=== PATIENT | female | born 1990 | race African-American/Black ===

== ENCOUNTER 2022-03-25 06:46 | Inpatient (IN) ==
[2022-03-25] MEDS ORDERED: PENICILLIN G POTASSIUM 6 MU in DEXTROSE 5% 250 ML IV STA (07:14)
[2022-03-25] MEDS ORDERED: OXYTOCIN 30 UNITS/500 ML BAG IV PRN ×2 (07:14→07:21)
--- NOTE | 2022-03-25 07:16 | History & Physical Report ---
Date of Service March 25, 2022 Assessment & Plan (1) Carrier of group B Streptococcus: (2) Insulin controlled gestational diabetes mellitus (GDM) during : (3) PROM (premature rupture of membranes): Plan: grossly ruptured and gbs positive. Start pcn prophylaxis. fetus category one. Discussed expectant management vs. pitocin now. Discussed leaning to the latter as she is gbs positive. they are considering. check bs q 1 hr. Anticipat History of Present Illness Chief Complaint: rom Primary Care Provider: Liseth Coates MD Patient is a 32yof with iup at 37 3/7 weeks who presents to labor and delivery noting rom at 5am, gush with constant leaking. no real contractions, some cramping. no vb. +fm. Last us showed ac 97%, efw 92% and Delivery Plans Two GS identified at NOB visit, a viable S=D and a second one with nonviable 6w3d pole - Manage as viable sierra - May impact cfDNA results; test as twin, and pt/FOB aware abnl DNA may be detected from the MAB, amnio may be required to clarify results. S/p flu shot 07/2021, COVID booster 08/20/21 Insufficent DNA x2 on Panorama *Genetic consult (11/03/21 @ [facility] [place]) - [facility] Normal GDM on insulin *Wkly NSTs @32wks and Twice wkly @36wks *Serial growth US @28wks *Deliver by [facility]-Induction 04/06 Covid Test 04/02 OB Labs: Blood Type O Positive 09/03/21 Antibody Screen NEGATIVE 09/03/21 Hemoglobin 11.8 g/dL (12.0-16.0) L 01/23/22 Hematocrit 35.9 % (37-47) L 01/23/22 Mean Corpuscular Volume 83.7 fL (80-100) 09/03/21 Platelet Count 262 K/uL (130-400) 09/03/21 Rubella IgG Antibody Immune (Immune) 09/03/21 Rapid Plasma Reagin Nonreactive (Nonreactive) 09/03/21 Hepatitis B Surface Antigen Neg (Neg) 09/03/21 HIV (1&2) Ab and P24 Ag, 4th Gener Neg (Neg) 09/03/21 Glucose 1 Hour 50 gm Load 141 mg/dl (70-130) H 01/23/22 OB Optional Labs: Chlamydia trachomatis RNA NOT DETECTED (NOT DETECTED) 09/03/21 Neisseria gonorrhoeae RNA NOT DETECTED (NOT DETECTED) 09/03/21 Labs Reviewed: insufficient dna with panorama x 2csmp invitae--low risk smp cf/sma neg--smp declines msafp--smp gbs positive Allergies Allergy/AdvReac Type Severity Reaction Status Date / Time No Known Allergies Allergy Verified 03/20/22 09:25 Home Medications Medication Instructions Recorded Confirmed Type prenat.vits,kayla,wjj-rxix-dcjxd 2 tab PO DAILY tab 05/22/21 03/20/22 History famotidine [Pepcid AC] PO 08/27/21 03/20/22 History acetone (urine) test (Ketone Urine #50 ea 01/30/22 03/20/22 Rx Test) blood sugar diagnostic (OneTouch #150 ea 01/30/22 03/20/22 Rx Verio test strips) blood-glucose meter (OneTouch #1 ea 01/30/22 03/20/22 Rx Verio Reflect Meter) lancets 33 gauge (OneTouch Delica #150 ea 01/30/22 03/20/22 Rx Lancets) insulin NPH isoph U-100 human 100 8 unit SUBCUT .at bedtime #15 ml 02/06/22 03/20/22 Rx unit/mL (3 mL) subcutaneous pen (Novolin N Flexpen) insulin aspart U-100 100 unit/mL See Rx Instructions SUBCUT TID #15 02/11/22 03/20/22 Rx (3 mL) subcutaneous pen (Novolog ml Flexpen U-100 Insulin aspart) pen needle, diabetic 32 gauge x #100 ea 02/12/22 03/20/22 Rx 5/32" (BD Ultra-Fine Areli Pen Needle) Patient History Medical History GERD (gastroesophageal reflux disease) Varicella vaccination Surgical History [place] teeth removed Family History Grandmother (Maternal) No problems noted. Grandmother (Paternal) Breast cancer Grandfather (Paternal) Colorectal cancer Mother Hypertension Father Asthma Brother Asthma Crohn's disease Brother No problems noted. Denies family history of Ovarian cancer Prostate cancer Myocardial infarction Social History Smoking Status: Never smoker Second Hand Exposure: No; Hx Alcohol Use: Yes Alcohol type: beer Alcohol Intake Frequency: Monthly or Les s Hx Substance Use: No Preferred Language: Malian Communication Ability: Effective Visual Impairment: No Limitations Hearing Ability: Normal Beliefs That Will Affect Care: None marital status: marital status details: Porfirio العلي" Dowling (30) [phone] Current Living Situation: Spouse Current Living Situation Comment: Lives with , dogs and cat. FOB changes litter. 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 Results & Data ([facility]) Vital Signs (Past 12 Hours) Vital Signs Pulse BP 03/25/22 07:02 106 H 131/85 Coding Level of Care Code None Diagnoses Carrier of group B Streptococcus Z22.330 Insulin controlled gestational diabetes mellitus (GDM) during O24.414 PROM (premature rupture of membranes) O42.90
[2022-03-25 07:39] LABS: Mean Corpuscular Hgb Conc 31.9 g/dL (32-36)
[2022-03-25 07:47] LABS: Hematocrit (blood only) 33.5 % (37-47); Hemoglobin 10.7 g/dL (12.0-16.0); Mean Corpuscular Hemoglobin 24.8 pg (25-34); Mean Corpuscular Volume 77.7 fL (80-100); Red Blood Count 4.31 M/uL (4.2-5.4); White Blood Count 6.34 K/uL (4.8-10.8)
[2022-03-25 08:04] LABS: Platelet Count 135 K/uL (130-400); Platelet Estimate Decreased (Normal)
[2022-03-25] MEDS: LACTATED RINGER'S 1,000 ML IV PRN ×2 (08:04→15:58)
[2022-03-25] MEDS: PENICILLIN G POTASSIUM 3 MU in DEXTROSE 5% 100 ML IV PRN ×3 (12:05→20:59)
--- NOTE | 2022-03-25 13:30 | Labor Progress Brief Note ---
Date of Service March 25, 2022 Subjective Tolerating ctx, will want epidural soon Assessment & Plan (1) PROM (premature rupture of membranes): Plan: GBS pos - abx PROM - pit, may need to increase max as no change really yet BP - higher readings noted, may be due to pt becoming uncomfortable now GDM - in target range without insulin thus far, Q1h checks Admission and Anticipated Discharge Date Admission Date: March 25, 2022 Physical Exam Genitourinary: Pit @ 17 LOF clear continues FHT Cat 1 [place] Q2-4 irreg Cvx /-2 Results & Data ([facility]) Vital Signs (Past 12 Hours) Vital Signs Temp Pulse Resp BP 03/25/22 13:24 98.2 F 68 18 141/90 H 03/25/22 12:35 98.1 F 18 03/25/22 12:29 74 145/94 H 03/25/22 11:33 71 131/85 03/25/22 10:21 75 138/84 03/25/22 10:15 98.2 F 18 03/25/22 09:29 75 138/87 03/25/22 09:15 98.2 F 16 03/25/22 08:28 82 137/87 03/25/22 08:27 98.4 F 18 03/25/22 07:19 98.2 F 106 H 18 131/85 03/25/22 07:02 106 H 131/85 Coding Level of Care Code None Diagnoses PROM (premature rupture of membranes) O42.90
--- NOTE | 2022-03-25 15:12 | Labor Progress Brief Note ---
Date of Service March 25, 2022 Subjective Quite uncomfortable, considering epidural soon Assessment & Plan (1) PROM (premature rupture of membranes): Plan: IUPC - titrate pit to MVU 200-250, and ceiling on pitocin raised to 30. Continue other care as prior. Admission and Anticipated Discharge Date Admission Date: March 25, 2022 Physical Exam Genitourinary: Cvx 3/80/-2 but softer subjectively FHT Cat 1 [place] Q3 Pit @ 19 IUPC placed without difficulty, first ctx MVU of 30-35 so likely inadequate overall MVU at this time Results & Data ([facility]) Vital Signs (Past 12 Hours) Vital Signs Temp Pulse Resp BP 03/25/22 14:28 98.2 F 68 18 125/71 03/25/22 13:24 98.2 F 68 18 141/90 H 03/25/22 12:35 98.1 F 18 03/25/22 12:29 74 145/94 H 03/25/22 11:33 71 131/85 03/25/22 10:21 75 138/84 03/25/22 10:15 98.2 F 18 03/25/22 09:29 75 138/87 03/25/22 09:15 98.2 F 16 03/25/22 08:28 82 137/87 03/25/22 08:27 98.4 F 18 03/25/22 07:19 98.2 F 106 H 18 131/85 03/25/22 07:02 106 H 131/85 Coding Level of Care Code None Diagnoses PROM (premature rupture of membranes) O42.90
[2022-03-25] MEDS ORDERED: ePHEDrine sulfate 50 MG/ML AMP ONE (15:50)
[2022-03-25] MEDS ORDERED: BUPIVACAINE 0.25% 30 ML VIAL ONE ×2 (15:51→22:12)
[2022-03-25] MEDS ORDERED: fentaNYL citrate 100 MCG/2 ML VIAL ONE (15:51)
[2022-03-25] MEDS ORDERED: SODIUM CHLORIDE 0.9% INJ 10 ML VIAL ONE ×2 (15:51→19:42)
[2022-03-25] MEDS ORDERED: fentaNYL 2MCG/ML ROPIVACAINE 1.25MG/ML 100 ML BAG EPI ONE (15:52)
[2022-03-25] MEDS ORDERED: NALBUPHINE HCL INJ 10 MG/ML AMP IV PRN (15:58)
[2022-03-25] MEDS ORDERED: NALOXONE HCL 1 MG in SODIUM CHLORIDE 0.9% 1000ML 1,000 ML IV PRN (15:58)
[2022-03-25] MEDS ORDERED: diphenhydrAMINE 50 MG/ML VIAL IV PRN (15:58)
[2022-03-25] MEDS ORDERED: fentaNYL 2MCG/ML ROPIVACAINE 1.25MG/ML 100 ML BAG EPI PRN (15:58)
[2022-03-25] MEDS ORDERED: ePHEDrine sulfate 50 MG/ML AMP IV PRN (15:58)
[2022-03-25] MEDS ORDERED: NALOXONE HCL 0.4 MG/1 ML VIAL/CARP IV PRN (15:58)
--- NOTE | 2022-03-25 15:58 | Anesthesiology Consultation ---
Date of Service March 25, 2022 Assessment & Plan (1) Encounter for pre-operative examination: Chart Review Chart Review: Acceptable Risk for Surgery and Patient NOT seen in Pre Admission Testing Consults Requested none History Height/Weight Height: 6 ft Weight: 117.934 kg Allergies Allergy/AdvReac Type Severity Reaction Status Date / Time No Known Allergies Allergy Verified 03/20/22 09:25 Medications Home Medications Medication Instructions Recorded Confirmed Last Taken prenat.vits,kayla,cuk-gcll-ixose 2 tab PO DAILY tab 05/22/21 03/25/22 03/24/22 08:00 famotidine [Pepcid AC] PO PRN 08/27/21 03/20/22 Unknown acetone (urine) test (Ketone Urine #50 ea 01/30/22 03/20/22 Unknown Test) blood sugar diagnostic (OneTouch #150 ea 01/30/22 03/20/22 Unknown Verio test strips) blood-glucose meter (OneTouch #1 ea 01/30/22 03/20/22 Unknown Verio Reflect Meter) lancets 33 gauge (OneTouch Delica #150 ea 01/30/22 03/20/22 Unknown Lancets) insulin NPH isoph U-100 human 100 8 unit SUBCUT .at bedtime #15 ml 02/06/22 03/25/22 Unknown unit/mL (3 mL) subcutaneous pen (Novolin N Flexpen) insulin aspart U-100 100 unit/mL See Rx Instructions SUBCUT TID #15 02/11/22 03/25/22 Unknown (3 mL) subcutaneous pen (Novolog ml Flexpen U-100 Insulin aspart) pen needle, diabetic 32 gauge x #100 ea 02/12/22 03/20/22 Unknown 5/32" (BD Ultra-Fine Areli Pen Needle) Active Medications Generic Name Dose Route Start Last Admin Trade Name Freq PRN Reason Stop Dose Admin Lactated Ringer's 1,000 mls @ 125 mls/hr 03/25/22 07:14 03/25/22 08:04 Lr IV 03/27/22 07:13 125 mls/hr .Q8H PRN Administration L&D Protocol Protocol Penicillin G Potassium 3 mu/ 106 mls @ 100 mls/hr 03/25/22 10:14 03/25/22 12:05 Dextrose IV 04/04/22 10:13 100 mls/hr Q4H PRN Administration GBS(+) Until Delivery Oxytocin 30 units in 500 mls @ 23 mls/hr 03/25/22 07:21 03/25/22 15:40 Pitocin IV 03/27/22 07:20 1.38 units/hr .[id number] PRN 23 mls/hr Labor Induction/Augmentation Titration Protocol 1.38 UNITS/HR Past Medical History Medical History GERD (gastroesophageal reflux disease) Varicella vaccination Past Family History Family History Grandmother (Maternal) No problems noted. Grandmother (Paternal) Breast cancer Grandfather (Paternal) Colorectal cancer Mother Hypertension Father Asthma Brother Asthma Crohn's disease Brother No problems noted. Denies family history of Ovarian cancer Prostate cancer Myocardial infarction Past Surgical History Surgical History [place] teeth removed Social History Smoking Status: Never smoker Hx Alcohol Use: Yes Alcohol type: beer Alcohol Intake Frequency Comment: Patient states, does not use alcohol with . Hx Substance Use: No Physical Exam Vital Signs Last Vital Signs Temp 98.2 F 03/25/22 14:28 Pulse 80 03/25/22 15:44 Resp 18 03/25/22 14:28 BP 135/81 03/25/22 15:44 Testing Laboratory Results 03/25/22 07:26 03/25/22 03/25/22 03/25/22 14:50 14:30 13:33 POC Glucose 73 61 L* 67 L* 03/25/22 03/25/22 03/25/22 13:33 12:32 11:30 POC Glucose 67 L* 84 73 03/25/22 03/25/22 03/25/22 10:22 09:27 08:12 POC Glucose 76 82 88 03/25/22 07:16 POC Glucose 82
--- NOTE | 2022-03-26 00:59 | Delivery Summary ---
Vaginal Delivery Summary Date of Service March 26, 2022 Vaginal Delivery Summary DIAGNOSES: 1. Fajardo intrauterine at 37w4d gestation. 2. PROM with IOL. 3. Group B Streptococcus Pos. PROCEDURE: Spontaneous vaginal delivery and repair of second degree laceration. SURGEON: Corazon Yoder MD. UX RESEARCHER: None. ESTIMATED BLOOD LOSS: 450 mL. COMPLICATIONS: None. PLACENTA: Spontaneous and intact with a 3-vessel cord. DISPOSITION: Stable to labor and delivery. DESCRIPTION: The patient pushed well and brought the head to in DOP position. The 's head was allowed to deliver. There was no nuchal cord. The left shoulder was anterior. The shoulders and body rapidly followed without any difficulty, and the was placed on the maternal abdomen. It was vigorous and moving all extremities, and making respiratory efforts. The cord was doubly clamped by the MD and then cut by the FOB. The placenta delivered spontaneously and was noted to be intact and with a 3VC. The cervix, vagina and perineum were examined and were found to have a second degree laceration which was repaired with vicryl in the usual manner, including a crown stitch to rebuild the perineal body. The fundus was firm and lochia minimal immediately after delivery. [facility] Vaginal Delivery Charge Vaginal Delivery Codes: 88542 global code for the antepartum, delivery, and post-
[2022-03-26] MEDS ORDERED: DIPHTHERIA/TETANUS/PERTUSSIS 0.5 ML SYR/VIAL IM ONE (01:20)
[2022-03-26] MEDS ORDERED: BENZOCAINE 20% AER SPR 82.5 GM CAN EXT PRN (01:20)
[2022-03-26] MEDS ORDERED: HYDROCORTISONE ACETATE 25 MG SUPP PR PRN (01:20)
--- NOTE | 2022-03-26 01:31 | Anesthesia Procedure Note ---
Date of Service March 26, 2022 Anesthesia Post Epidural Note Vital Signs Vital Signs: Temp Pulse Resp BP Pulse Ox 98.4 F 90 18 123/63 94 03/25/22 23:00 03/26/22 01:23 03/25/22 23:00 03/26/22 01:23 03/26/22 00:44 Pain Intensity Lower Abdomen: Pain Intensity: 7 Notes Mental Status: alert / awake / arousable and participated in evaluation Nausea / Vomiting: adequately controlled Pain: adequately controlled Airway Patency, RR, SpO2: stable & adequate BP & HR: stable & adequate Hydration State: stable & adequate Neuraxial Anesthesia: was administered and sensory block is resolving Anesthetic Complications: no major complications apparent and Pt Satisfied with anesthetic care Epidural: Removed without complications and With tip intact
[2022-03-26] MEDS ORDERED: AMPICILLIN/SULBACTAM SOD 3,000 MG in 0.9 % SODIUM CHLORIDE 100 ML IV STA (01:50)
[2022-03-26] MEDS: LACTATED RINGER'S 1,000 ML IV PRN (03:32)
[2022-03-26] MEDS: IBUPROFEN 600 MG TAB PO PRN ×3 (05:22→15:28)
[2022-03-26] MEDS: PRENATAL VITAMIN 1 TAB PO SCH (08:46)
[2022-03-26] MEDS: DOCUSATE SODIUM 100 MG CAP PO SCH ×2 (08:46→19:44)
[2022-03-26] MEDS: ACETAMINOPHEN 325 MG TAB PO PRN (18:43)
[2022-03-27] MEDS: IBUPROFEN 600 MG TAB PO PRN ×3 (02:51→14:15)
[2022-03-27 06:29] LABS: Mean Corpuscular Hgb Conc 32.2 g/dL (32-36)
[2022-03-27 07:24] LABS: Hematocrit (blood only) 24.3 % (37-47); Hemoglobin 7.8 g/dL (12.0-16.0); Mean Corpuscular Hemoglobin 25.2 pg (25-34); Mean Corpuscular Volume 78.6 fL (80-100); RDW Coefficient of Variation 14.4 % (11.5-14.5); Red Blood Count 3.09 M/uL (4.2-5.4); White Blood Count 8.49 K/uL (4.8-10.8)
[2022-03-27 07:43] LABS: Platelet Estimate Normal (Normal)
--- NOTE | 2022-03-27 07:47 | Obstetrical Progress Note ---
Date of Service March 27, 2022 Assessment & Plan (1) Encounter for care and examination after delivery: satisfactory course continue current care plan discharge today Subjective Ambulation: ambulating normally Voiding: no voiding problems Passing Gas:: Yes Diet Tolerance:: regular diet Lochia:: Small Feeding Type:: breast feeding Review of Systems All systems reviewed & are unremarkable except as noted in HPI & below Physical Exam Constitutional WD/WN, vitals as above Psychiatric A+Ox3, euthymic affect Genitourinary OB Exam Abdomen: + fundal height Fundus: + firm and + relation to umbilicus (1 below U); not tender Results & Data ([facility]) Vital Signs (Past 12 Hours) Vital Signs Temp Pulse Resp BP Pulse Ox 03/27/22 07:38 97.7 F 89 16 125/83 97 03/26/22 23:05 98.6 F 87 18 117/75 96
[2022-03-27 08:01] LABS: Platelet Count 120 K/uL (130-400)
[2022-03-27] MEDS: ACETAMINOPHEN 325 MG TAB PO PRN ×2 (08:24→14:15)
[2022-03-27] MEDS: PRENATAL VITAMIN 1 TAB PO SCH (08:25)
[2022-03-27] MEDS: DOCUSATE SODIUM 100 MG CAP PO SCH (08:25)
== END 2022-03-27 18:26 | disposition home or self-care (01) | DRG 807 ==
LOC: OPB 06:46 → 4S1 06:50 → 4E2 03-26 06:03